=== PATIENT | male | born 1930 | race Caucasian/White ===

== ENCOUNTER 2016-10-11 13:00 | Inpatient (IN) | payer MEDICARE, OTHER ==
[~2016-10-11] VITALS: Ht 182.9 cm; Wt 97.5 kg
--- NOTE | ~2016-10-11 | DS ---
PATIENT'S NAME: TALIA WRIGHT [facility] AGE: 86 Y [address] 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 SECONDARY DIAGNOSES: 1. Diabetes mellitus. 2. Atrial fibrillation. 3. History of diverticulitis. 4. Hypothyroidism. 5. Moderate aortic stenosis. PROCEDURE: 1. Right total ankle arthroplasty. 2. Right gastrocnemius recession. HISTORY: The patient is an 86-year-old male, who presents with advanced right ankle degenerative joint disease and associated severely compromised activities of daily living. The patient has decided to proceed with the total ankle arthroplasty after having been thoroughly counseled regarding the risks, benefits, limitations, and alternatives. Please refer to the outpatient clinical note and admission history and physical for this patient. HOSPITAL COURSE: The patient underwent a right total ankle arthroplasty on 10/26/2016 without complications. Spinal anesthesia with peripheral nerve block was utilized. The patient received 24 hours of postoperative antibiotics and remained hemodynamically stable and neurovascularly intact throughout the entire course. The postoperative prophylactic DVT prophylaxis consisted of Xarelto, early mobilization, and pneumatic compression devices. The patient did work with physical therapy on transfer training due to the nonweightbearing status of the operative leg. The patient progressed well in the postoperative recovery and on 10/28/2016 the patient was determined to be stable for discharge. DISPOSITION: To home. DISCHARGE MEDICATIONS: 1. Xarelto 20 mg daily. 2. Digoxin 125 mcg p.o. daily. 3. Amlodipine 2.5 mg p.o. daily. 4. Loratadine 10 mg p.o. daily. 5. Atorvastatin 10 mg p.o. daily. PATIENT'S NAME: TALIA WRIGHT [facility] AGE: 86 Y [address] ROOM: [place] [address] LOCATION: N ADMIT DATE: 10/26/2016 Discharge Summary DISCHARGE DATE: 10/28/2016 FAMILY PHYSICIAN: Zain Santiago MD ATTENDING PHYSICIAN: Charlie Calabrese 6. Levothyroxine 100 mcg p.o. daily. 7. [place]-3 fatty acid 1000 mg p.o. daily. 8. Ascorbic acid 500 mg p.o. daily. 9. Multivitamin 1 tablet p.o. daily. 10. Glucosamine 1000 mg p.o. daily. 11. Calcium, magnesium, zinc, and sulfur tablet 1 tablet p.o. at bedtime. 12. Vitamin E 400 units p.o. daily. 13. Colace 100 mg p.o. b.i.d. as needed for constipation. 14. MiraLax 17 g powder every 12 hours as needed for constipation. 15. Diazepam 2.5 mg every 6 hours as needed for muscle spasms. 16. Brooten 5/325 one to two tablets every 4 hours as needed for pain. DISCHARGE INSTRUCTIONS: The patient is to be nonweightbearing of the operative extremity. The patient is to keep the operative extremity elevated at least 90% of the day above the level of the heart. Splint of the operative extremity is to be kept clean and dry. Dr. Calabrese is to be notified immediately if there is any increased pain, fever, chills, erythema or drainage. Follow up in Dr. Calabrese office on 11/11/2016 at 8:20 a.m. for initial postoperative evaluation, x-rays and for staple removal at that time. OLIVIA BOLIVAR PA-C FOR MD HOSEA ROBLES/beth /[id number] d: 11/15/16 0519 t: 11/18/16 1342, DISCHARGE SUMMARY
--- NOTE | ~2016-10-11 | OR ---
PATIENT'S NAME: TALIA WRIGHT [facility] AGE: 86 Y [address] ROOM: [place] [id number] LOCATION: [facility] ADMIT DATE: 10/26/2016 OR/Procedure Report DISCHARGE DATE: FAMILY PHYSICIAN: Zain Santiago MD ATTENDING PHYSICIAN: NANCY LYLE SURGEON: Nancy Lyle MD CLINICAL INFORMATICS SPEC: None. DATE OF PROCEDURE: 10/26/2016 PREOPERATIVE DIAGNOSES: 1. Right end-stage ankle primary osteoarthritis. 2. Right gastrocnemius equinus/shortened Achilles tendon. POSTOPERATIVE DIAGNOSES: 1. Right end-stage ankle primary osteoarthritis. 2. Right gastrocnemius equinus/shortened Achilles tendon. PROCEDURES: 1. Right total ankle arthroplasty. 2. Right gastrocnemius recession. 3. Use of intraoperative fluoroscopy, less than 1 hour. ANESTHESIA: Spinal anesthesia with peripheral nerve blocks. FLUIDS: See anesthesia report. ESTIMATED BLOOD LOSS: Minimal. TOURNIQUET: Right proximal thigh 250 mmHg for 2 hours. SPECIMENS: None. COMPLICATIONS: None. DISPOSITION: Stable in PACU. COUNTS: All counts were correct. IMPLANTS: Figure 8 Surgical STAR total ankle arthroplasty system. Size large tibial component, size extra-small talar component, and size 10 polyethylene liner. INDICATION: Mr. Wright is a pleasant 86-year-old gentleman, who underwent the noted procedures above. The risks, benefits, and alternatives pursuing surgical intervention were discussed to the patient in detail. He elected to proceed with surgery as noted above. Anesthesia was consulted for their PATIENT'S NAME: TALIA WRIGHT [facility] AGE: 86 Y [address] ROOM: [place] [id number] LOCATION: [facility] ADMIT DATE: 10/26/2016 OR/Procedure Report DISCHARGE DATE: FAMILY PHYSICIAN: Zain Santiago MD ATTENDING PHYSICIAN: NANCY LYLE perioperative evaluation of the patient. I marked the right lower extremity indicating the correct surgical site. DESCRIPTION OF PROCEDURE: The patient was taken from the holding area to the operative room. A time-out was performed. Spinal anesthetic administered. Previous nerve blocks were placed by the Anesthesia team. Perioperative antibiotics were administered for prophylactic purposes. The right lower extremity was then prepped and draped in a sterile fashion. I turned my attention to the right ankle. An Esmarch was used to exsanguinate the limb. The tourniquet was inflated to 250 mmHg. I turned my attention the medial proximal portion of the leg. I made a skin incision longitudinally through skin and subcutaneous tissue, through the fascia and the medial aspect of the leg to identify the gastrocnemius aponeurosis. I performed a gastrocnemius recession procedure. This improved dorsiflexion. I copiously irrigated the wound and closed it in layers. I then turned my attention to the anterior aspect of the ankle. I made an anterior ankle incision of the skin and subcutaneous tissue. I identified the extensor retinaculum and tagged with an 0 Vicryl suture. I then identified the interval tibialis anterior tendon and extensor hallucis longus tendons. I retracted the tibialis anterior medially and the EHL and other structures laterally. I identified the ankle joint. There were advanced degenerative changes present. I used an osteotome to remove osteophytes present. I then placed a pin in the tibial tuberosity for my tibial jig. I then placed my tibial jig. I introduced intraoperative fluoroscopy to align my tibia jig for my cut. I confirmed the position of the cut in the AP and lateral planes. Using oscillating saw, I made my distal tibia cut. I was careful to protect my medial malleolus and fibula. I then turned my attention to the talus. I placed my talar jig. I confirmed the position of the jig fluoroscopically. I made my talar cuts. I then sized my tibia and talar component. The wound was then copiously irrigated with a normal sterile saline solution. I performed a meticulous debridement of the medial and lateral gutters. There was varus deformity and contracture of the deltoid ligament and loosening of the lateral collateral ligaments. Once the entire surgical site was copiously irrigated, I then placed my final tibial component. I first placed my talar component and then my tibial component. There was good bony fixation noted. I then placed a size 10 polyethylene trial spacer. I confirmed fluoroscopically the position of the joint that was slightly valgus but the range of motion of the joint was approximately 10 degrees of dorsiflexion past neutral to approximately 40 degrees of plantar flexion. The gutters appeared clear through range of motion. There was no lift-off the components through range of motion. I removed the trial polyethylene spacer and placed a size 10 final polyethylene spacer. Final PATIENT'S NAME: TALIA WRIGHT [facility] AGE: 86 Y [address] ROOM: [id number] [place] [id number] LOCATION: [facility] ADMIT DATE: 10/26/2016 OR/Procedure Report DISCHARGE DATE: FAMILY PHYSICIAN: Zain Santiago MD ATTENDING PHYSICIAN: NANCY LYLE fluoroscopic images were taken. The ankle again was taken through range of motion and was similar to previous. I was identical to previous. The wound was copiously irrigated again. I closed the capsule using 0 Vicryl suture, followed by 0 Vicryl suture to approximate the extensor retinaculum, followed by 2-0 Vicryl suture to approximate the subcutaneous tissue. [place] were used to approximate the skin. Sterile dressing was placed in the form of Xeroform, followed by 4x4s, and sterile Webril. The patient was then placed into a well-padded short-leg splint with the ankle in neutral dorsiflexion. The patient was then transferred to the operating table onto the stretcher and brought to recovery room in stable condition. The tourniquet was let down prior to placing the splint and hemostasis was unaffected. There were no intraoperative complications noted. IMPRESSION: The patient is status post the noted procedure above. PLAN: The patient will be nonweightbearing on the right lower extremity. He will be encouraged to rest, ice, and elevate the right lower extremity going forward. Postoperative pain control in the form of Percocet and IV morphine as needed for pain. Postoperative antibiotics will be administered per routine. Physical Therapy and Occupational Therapy will be consulted for early ambulation and prevention of deconditioning. We will consult the hospitalist to manage the patient's concomitant medical comorbidities. We will begin Xarelto at a lower dose for the first 2 days postoperatively. I will continue to monitor the patient closely in this postoperative period. MD TREVIN ROBLES/modl /[id number] d: 10/26/168 t: 10/27/16 0841, OPERATIVE SUMMARY
[2016-10-18] MEDS ORDERED: XARELTO20 MG PO (09:35)
[2016-10-18] MEDS ORDERED: LANOXIN (DIGI125 MCG PO (09:35)
[2016-10-18] MEDS ORDERED: CLARITIN10 MG PO (09:36)
[2016-10-18] MEDS ORDERED: NORVASC2.5 MG PO (09:36)
[2016-10-18] MEDS ORDERED: FISH OIL 1,0001 EACH PO (09:37)
[2016-10-18] MEDS ORDERED: LIPITOR10 MG PO (09:37)
[2016-10-18] MEDS ORDERED: LEVOTHROID (S100 MCG PO (09:37)
[2016-10-18] MEDS ORDERED: CENTRUM SILVER1 TAB PO (09:38)
[2016-10-18] MEDS ORDERED: ASCORBIC ACID500 MG PO (09:38)
[2016-10-18] MEDS ORDERED: GLUCOSAMINE1000 MG PO (09:40)
[2016-10-18] MEDS ORDERED: HM CALCIUM-MAG1 EACH PO (09:41)
[2016-10-18] MEDS ORDERED: VITAMIN E400 UNI1 PO (09:42)
--- NOTE | 2016-10-26 14:00 | NUR ---
Introduced self/role to patient and his family - , kids and great grand daughter. They have a knee scooter on hold, didn't think there would be any other DME needed that they don't already own. Family will be him. Did wonder where they get bags to cover his ankle when taking a shower. Spoke to Nyasia charge nurse and they will be supplied when he leaves. They had no other barriers to discharge or at home. Added my name to his marker board. He anticipates being here at least 2 days longer.
--- NOTE | 2016-10-26 17:49 | NUR ---
Significant Event:Received from PACU at 1250. 3rd hourly at 1835. Up to commode /chair with walker and one assist. Non wt bearing rt leg. Numbness to rt toes. Unable to assess pedal pulse due to dressing. Dilaudid 0.2mg x3 last at 1731. [place] one tab at 1628. Taking po. Voided x1 Follow up:
--- NOTE | 2016-10-26 18:47 | NUR ---
I reviewed and approve of charting by SN Romelia
[2016-10-26 20:59] LABS: ANION GAP 12.5 (10.0-19.0); BLOOD UREA NITROGEN 18 mg/dL (6-24); CALCIUM 7.9 mg/dL (8.5-10.5); CHLORIDE 108 mMol/L (96-110); CO2 28 mMol/L (22-32); CREATININE 1.1 mg/dL (0.6-1.3); ESTIMATED GFR (MDRD EQUATION) > 60; MAGNESIUM 2.2 mg/dL (1.8-2.6); POTASSIUM 4.5 mMol/L (3.7-5.1); SODIUM 144 mMol/L (135-145)
--- NOTE | 2016-10-27 03:53 | NUR ---
Shift Summary: Patient can transfer with two assist. NWB to right leg. Have kept right lower leg highly elevated with an ice pack all shift. Patient taking one norco about every 2hr. Last one at 0159. Had 10/10 pain with transfer to bed, gave IV diladid and Valium at 0130. Patient voiding without difficulty. Tolerating regular diet well.
[2016-10-27 06:00] LABS: HEMATOCRIT 36.1 % (33.0-50.0); HEMOGLOBIN 11.9 g/dL (11.0-16.0)
--- NOTE | 2016-10-27 16:56 | NUR ---
Significant Event: PT ALERT AND ORIENTED. UP IN THE CHAIR AND HALLS WITH PHYSICAL THERAPY. CONT TO HAVE PAIN ISSUES BUT HAS BEEN DOWN TO 4-5 THIS SHIFT. IV DILAUDID GIVEN THIS AM AND NORC GIVEN LAST AT 1645. VALIUM GIUVEN AT 1138. ON TELE NO CALLS. 17 BEATS V TACK LAST NIGHT. ICE TO RT ANKLE. Follow up:
--- NOTE | 2016-10-28 04:06 | NUR ---
Patient very drowsy this shift, slept most of the shift held pain meds due to drowsiness, csm with in normal limits, dressing clean dry and intact to right ankle, incontient of urine, stood at bedside to use urinal, 2 assist with transfers,
--- NOTE | 2016-10-28 08:10 | NUR ---
Followed up with patient and his son. Still denied any barriers to going home or at home. Working with therapies on the knee scooter.
[2016-10-28] MEDS ORDERED: COLACE100 MG PO (10:19)
[2016-10-28] MEDS ORDERED: MIRALAX17 GM PO (10:26)
[2016-10-28] MEDS ORDERED: VALIUM5 MG PO (10:30)
[2016-10-28] MEDS ORDERED: NORCO 5-325 TA1 EACH PO (10:35)
--- NOTE | 2016-10-28 13:32 | NUR ---
Significant Event: Ambulates with one assist, walker, and knee scooter. Maintains NWB to R) leg. Cast to R) ankle C/D/I. Ice at all times. Tele, no calls. Accuchecks ACHS. [place] last at 1145. Small BM this shift. Plans to dimsiss home with family this afternoon. Follow up:
== END 2016-10-28 17:36 | disposition disaster alternative care site (69) | DRG 470 ==
LOC: G3N 10-26 05:51
PROVIDERS: ADMIT Orthopaedic Surgery Adult Reconstructive Orthopaedic Surgery
DX: M19.071 Primary osteoarthritis, right ankle and foot (principal); M21.6X1 Other acquired deformities of right foot
CPT/HCPCS: C1776; J0690; J1170; J2001; J7030

== ENCOUNTER → 2016-10-20 | Outpatient (CLI) | payer MEDICARE, OTHER ==
[~2016-10-20] MED LIST: ASCORBIC ACID500 MG PO; CENTRUM SILVER1 TAB PO; CLARITIN10 MG PO; COLACE100 MG PO; FISH OIL 1,0001 EACH PO; GLUCOSAMINE1000 MG PO; HM CALCIUM-MAG1 EACH PO; LANOXIN (DIGI125 MCG PO; LEVOTHROID (S100 MCG PO; LIPITOR10 MG PO; MIRALAX17 GM PO; NORCO 5-325 TA1 EACH PO; NORVASC2.5 MG PO; VALIUM5 MG PO; VITAMIN E400 UNI1 PO; XARELTO20 MG PO
== END | disposition disaster alternative care site (69) ==
LOC: GNJRC 10-13 11:00
DX: Z01.812 Encounter for preprocedural laboratory examination (principal); M19.079 Primary osteoarthritis, unspecified ankle and foot